=== PATIENT | female | born 1960 | race Caucasian/White ===

== ENCOUNTER 2019-12-14 08:21 | Emergency (ER) | payer MEDICARE ==
[2019-12-14] MEDS ORDERED: Sodium Chloride 0.9% 1,000 ML IV ONE (08:42)
[2019-12-14] MEDS ORDERED: Prochlorperazine 10 MG in Sodium Chloride 0.9% 50 ML IV ONE (08:42)
[2019-12-14 09:39] LABS: BLOOD UREA NITROGEN,BUN 12 mg/dL (7.0-18.0); CARBON DIOXIDE,CO2 28.8 mmol/L (21.0-32.0); CHLORIDE,CL 101 mmol/L (98-107); GLUCOSE RANDOM 87 mg/dL (74-106); LIPASE 56 U/L (73-393); POTASSIUM,K 2.7 mmol/L (3.5-5.1); SODIUM,NA 141 mmol/L (136-145)
[2019-12-14] MEDS ORDERED: Potassium Chloride 20 MEQ Tab.ER PO ONE (09:45)
[2019-12-14] MEDS ORDERED: Potassium Chloride Riders 20 MEQ in Premix Bag 1 BAG IV ONE (09:49)
[2019-12-14] MEDS ORDERED: HYDROmorphone 1 MG/ML Syringe IVPUSH ONE (09:51)
[2019-12-14] MEDS ORDERED: Magnesium Chloride 64 MG Tab.ER PO SCH (10:00)
[2019-12-14 13:07] LABS: BLOOD UREA NITROGEN,BUN 9 mg/dL (7.0-18.0); CARBON DIOXIDE,CO2 28.6 mmol/L (21.0-32.0); CHLORIDE,CL 103 mmol/L (98-107); GLUCOSE RANDOM 80 mg/dL (74-106); POTASSIUM,K 3.5 mmol/L (3.5-5.1); SODIUM,NA 141 mmol/L (136-145)
--- NOTE | 2019-12-14 13:23 | EDM.PDOC ---
ED [facility] GENERAL MEDICAL PROBLEM - General Chief Complaint: General Stated Complaint: VOMITING Time Seen by Provider: 12/14/19 08:25 - History of Present Illness INITIAL COMMENTS - FREE TEXT/NARRATIVE: HPI 59-year-old female presents for evaluation of ~4 days of N/V, continues pass urine, flatus, stool baseline. Presented due to ongoing symptoms. Endorses subjective myalgias, fevers, chills. M/S/F/SocHx notable for: please see HPI; remainder reviewed with patient and in chart. ROS: Negative constitutional, eye, cardiovascular, pulmonary, GI, , MSK, skin , neurologic, psychiatric, endocrine unless noted in the HPI. Exam HR 90, RR 16, BP 134/89, T 35.5C, SaO2 98% on room air at 8:39 AM. Gen: pleasant, appears older than given age, cachectic, not in extremis. HEENT: NC, AT, PEERL, EOMI. Resp: Clear to auscultation bilaterally, normal work of breathing, no accessory muscle usage. Card: Regular rate and rhythm with no murmurs, rubs, or gallops, extremities warm and well perfused. GI: nontender to palpation throughout all quadrants, no rebound, no guarding. : No suprapubic tenderness to palpation. MSK: No visible deformities, strength and tone without visually appreciable deficit. Skin: Normal color with no visible lesions. Neuro: alert and oriented 3, no facial asymmetry, vision and hearing WNL. Psych: depressed mood and flat affect. Labs / Imaging: WBC 7.6, HB 12.3, sodium 141, potassium 2.7, magnesium 1.6, AST 17, ALT 12, alkaline phosphatase 61, total bilirubin 0.7, creatinine 0.7, lipase 56. MDM Previous chart, nursing note, labs, imaging, and vitals reviewed. A: 59-year-old female presents for evaluation of ~4 days of N/V, continues pass urine, flatus, stool baseline. DDx: gastritis, gastroenteritis, bacteremia/sepsis, dehydration, electrolyte abnormalities, obstruction, partial obstruction, ileus. Evaluation: based upon the overall history, exam, and clinical trajectory strongly suspect a viral gastritis. No features suggestive of bacteremia/sepsis (absence of leukocytosis, absence of fever, normal vital signs, stable ED course ), patient mildly dehydrated with hypokalemia and hypomagnesemia that was addressed as below. As the patient has a benign abdominal exam, took p.o. well in the emergency department, and has been taking PO well at home with normal passage of stool strongly doubt obstruction, partial obstruction, or ileus. ED Course: Dehydration treated with 1 L NS and 10 mg Compazine for the patients nausea. Hypokalemia treated with 20 mEq IV and 40 mEq p.o., mild hypomagnesemia treated with 64 mg mag chloride ER. Patient has poorly specified chronic pain for which she takes 10-325 mg [place] TID, patient has been unable to take for 12+ hours due to nausea, 0.5 mg hydromorphone given for parenteral supplementation. Repeat BMP with resolution of the patients hypokalemia, ongoing mild hypomagnesemia noted. Disposition: discharged with RX for Zofran, instructed to increase potassium and magnesium in diet. Impression: nausea, vomiting. Generalized Pain Pain Score (Numeric/FACES): 8 - Related Data Allergies Allergy/AdvReac Type Severity Reaction Status Date / Time cabbage Allergy Seizure Verified 12/14/19 08:36 chocolate flavor Allergy Seizure Verified 12/14/19 08:36 Sulfa (Sulfonamide Allergy Rash Verified 12/14/19 08:36 Antibiotics) Home Meds: Home Meds Aspirin 325 mg PO DAILY 12/14/19 [History] DULoxetine [Cymbalta] 60 mg PO DAILY 12/14/19 [History] Fenofibrate 160 mg PO DAILY 12/14/19 [History] Gabapentin [Neurontin] 200 mg PO BID 12/14/19 [History] Hydrocodone/Acetaminophen [Hydrocodon-Acetaminophn 10-325] 60 mg PO TID PRN 01/29 [History] Iron 65 mg PO ASDIRECTED 12/14/19 [History] Levothyroxine 137 mg PO DAILY 12/14/19 [History] Ondansetron [Zofran ODT] 4 mg PO Q6H PRN #10 tab.dis 12/14/19 [Rx] Pantoprazole Sodium 40 mg PO DAILY 12/14/19 [History] Propranolol HCl 60 mg PO BID 12/14/19 [History] Rosuvastatin Calcium 20 mg PO DAILY 12/14/19 [History] Sertraline HCl 100 mg PO BEDTIME 12/14/19 [History] Temazepam 30 mg PO BEDTIME 12/14/19 [History] atorvaSTATin Calcium [Atorvastatin Calcium] 80 mg PO BEDTIME 12/14/19 [History] Past Medical History HEENT History: Reports: Cataract Cardiovascular History: Reports: High Cholesterol, Hypertension Other Cardiovascular History: Stents [employer] History: Reports: Musculoskeletal History: Reports: RA Neurological History: Reports: Migraines Psychiatric History: Reports: Depression Other Endocrine/Metabolic History: "Thyroid Issues" 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 - Infectious Disease History Infectious Disease History: Reports: Chicken Pox - Past Surgical History HEENT Surgical History: Reports: Oral Surgery GI Surgical History: Reports: Appendectomy, Cholecystectomy Social & Family History - Tobacco Use Smoking Status *Q: Current Every Day Smoker Years of Tobacco use: 30 Packs/Tins Daily: 0 - Caffeine Use Caffeine Use: Reports: Tea - Recreational Drug Use Recreational Drug Use: Yes Recreational Drug Type: Reports: Marijuana/Hashish Other Recreational Drug Type: "Medical Marijuana" ED ROS GENERAL - Review of Systems Review Of Systems: See Below ED EXAM, GENERAL - Physical Exam Exam: See Below Course - Vital Signs Last Recorded V/S: Last Vital Signs Temp 35.5 C L 12/14/19 08:39 Pulse 90 12/14/19 08:39 Resp 16 12/14/19 08:39 BP 134/89 12/14/19 08:39 Pulse Ox 98 12/14/19 08:39 - Orders/Labs/Meds Labs: Laboratory Tests 12/14/19 12/14/19 12/14/19 Range/Units 09:05 09:05 12:31 WBC 7.86 (4.0-11.0) K/uL RBC 4.50 (4.30-5.90) M/uL Hgb 12.3 (12.0-16.0) g/dL Hct 38.0 (36.0-46.0) % MCV 84.4 (80.0-98.0) fL MCH 27.3 (27.0-32.0) pg MCHC 32.4 (31.0-37.0) g/dL RDW Std Deviation 51.0 (28.0-62.0) fl RDW Coeff of Angel 16 H (11.0-15.0) % Plt Count 310 (150-400) K/uL MPV 10.60 (7.40-12.00) fL Neut % (Auto) 70.8 (48.0-80.0) % Lymph % (Auto) 16.0 (16.0-40.0) % [place] % (Auto) 8.5 (0.0-15.0) % Eos % (Auto) 4.3 (0.0-7.0) % Baso % (Auto) 0.4 (0.0-1.5) % Neut # (Auto) 5.6 (1.4-5.7) K/uL Lymph # (Auto) 1.3 (0.6-2.4) K/uL [place] # (Auto) 0.7 (0.0-0.8) K/uL Eos # (Auto) 0.3 (0.0-0.7) K/uL Baso # (Auto) 0.0 (0.0-0.1) K/uL Nucleated RBC % 0.0 /100WBC Nucleated RBCs # 0 K/uL Sodium 141 141 (136-145) mmol/L Potassium 2.7 L 3.5 (3.5-5.1) mmol/L Chloride 101 103 (98-107) mmol/L Carbon Dioxide 28.8 28.6 (21.0-32.0) mmol/L BUN 12 9 (7.0-18.0) mg/dL Creatinine 0.7 0.6 (0.6-1.0) mg/dL Est Cr Clr Drug Dosing 74.36 86.75 mL/min Estimated GFR (MDRD) > 60.0 > 60.0 ml/min Glucose 87 80 (74-106) mg/dL Calcium 9.0 8.6 (8.5-10.1) mg/dL Magnesium 1.6 L 1.6 L (1.8-2.4) mg/dL Total Bilirubin 0.7 (0.2-1.0) mg/dL AST 17 (15-37) IU/L ALT 12 L (14-63) IU/L Alkaline Phosphatase 61 (46-116) U/L Total Protein 6.5 (6.4-8.2) g/dL Albumin 2.7 L (3.4-5.0) g/dL Globulin 3.8 (2.6-4.0) g/dL Albumin/Globulin Ratio 0.7 L (0.9-1.6) Lipase 56 L (73-393) U/L Meds: Medications Discontinued Medications Generic Name Dose Route Start Last Admin Trade Name Rita PRN Reason Stop Dose Admin Hydromorphone HCl 0.5 mg 12/14/19 09:51 12/14/19 10:17 Dilaudid IVPUSH 12/14/19 09:52 0.5 mg ONETIME ONE Administration Prochlorperazine Edisylate 10 52 mls @ 150 mls/hr 12/14/19 08:42 12/14/19 09: 16 mg/ Sodium Chloride IV 12/14/19 09:02 150 mls/hr ONETIME ONE Administration Sodium Chloride 1,000 mls @ 1,000 mls/hr 12/14/19 08:42 12/14/19 09:06 Normal Saline IV 12/14/19 09:41 1,000 mls/hr .Bolus ONE Administration Potassium Chloride 20 meq/ 260 mls @ 130 mls/hr 12/14/19 10:03 12/14/19 10:16 Sodium Chloride IV 12/14/19 11:48 130 mls/hr ONETIME ONE Administration Magnesium Chloride 64 mg 12/14/19 10:00 12/14/19 10:20 Mag-64 PO Not Given DAILY LARISA Potassium Chloride 40 meq 12/14/19 09:45 12/14/19 10:16 Klor-Con M20 PO 12/14/19 09:46 40 meq ONETIME ONE Administration Departure - Departure Time of Disposition: 13:20 Disposition: Home, Self-Care 01 Clinical Impression: Nausea & vomiting - Discharge Information Prescriptions: Ondansetron [Zofran ODT] 4 mg PO Q6H PRN #10 tab.dis PRN Reason: Nausea Instructions: Hypokalemia, Hypomagnesemia Referrals: PCP,Not In Area [Primary Care Provider] - Additional Instructions: You were in seen in the [facility] Emergency Department for evaluation of nausea and vomiting. At the time of your evaluation your symptoms are tentatively believed to be due to a viral gastritis. This is typically self-limiting disease that should pass in 4-6 days. Please take the prescribed Zofran for treatment of nausea and please have a well-rounded diet to address your low potassium and magnesium levels. You may wish to increase your consumption of bananas, avocados, and oranges. Please read and follow all of the instructions below. Please follow up with your primary care physician in 2 days for repeat evaluation. When calling for follow-up care, please make the office aware that this follow-up is from your recent emergency room visit. If for any reason you are refused follow-up, please contact the [facility] Emergency Department at and asked to speak to the emergency department charge nurse. Your care today was limited to identifying and treating emergent medical problems only. Many people have subtle differences in their test results that require follow up with their outpatient physician(s) to correctly determine if this represents a normal variation or concerning abnormality with respect to your specific health. The care given to you today was limited to identifying and treating emergent medical problems - you need to request a copy of all of your medical records from today's visit and follow up with your outpatient physician(s) to review both today's visit and your overall health. If you have any new symptoms or if you are at all concerned about your health please return immediately to the emergency department. Ondansetron (Brand Name: Zofran) Take one tablet every 6 hours as needed for nausea SIDE EFFECTS: Headache, fever, lightheadedness, dizziness, drowsiness, tiredness , constipation. If these effects persist or worsen, notify your doctor promptly. Many people using this medication do not have serious side effects. Tell your doctor right away if you have any serious side effects, including: stomach pain, muscle stiffness/spasm, vision changes (e.g., temporary loss of vision, blurred vision, uncontrollable eye movements). Get medical help right away if any of these rare but very serious side effects occur: chest pain, fainting, slow/fast/irregular heartbeat. A very serious allergic reaction to this drug is rare. However, get medical help right away if you notice any of the following symptoms of a serious allergic reaction: rash, itching/swelling ( especially of the face/tongue/throat), severe dizziness, trouble breathing. This is not a complete list of possible side effects. If you notice other effects not listed above, contact your doctor or pharmacist. PRECAUTIONS: Before using ondansetron, tell your doctor or pharmacist if you are allergic to it; or to other serotonin blockers (e.g., granisetron); or if you have any other allergies. This product may contain inactive ingredients, which can cause allergic reactions or other problems. Talk to your pharmacist for more details. Before using this medication, tell your doctor or pharmacist your medical history, especially of: irregular heartbeat, liver disease, stomach /intestinal problems (e.g., recent abdominal surgery, ileus, swelling). Ondansetron may cause a condition that affects the heart rhythm (QT prolongation ). QT prolongation can infrequently result in serious (rarely fatal) fast/ irregular heartbeat and other symptoms (such as severe dizziness, fainting) that require immediate medical attention. The risk of QT prolongation may be increased if you have certain medical conditions or are taking other drugs that may affect the heart rhythm (see also Drug Interactions section). Before using ondansetron, tell your doctor or pharmacist if you have any of the following conditions: certain heart problems (heart failure, slow heartbeat, QT prolongation in the EKG), family history of certain heart problems (QT prolongation in the EKG, sudden cardiac ). Low levels of potassium or magnesium in the blood may also increase your risk of QT prolongation. This risk may increase if you use certain drugs (such as diuretics/"water pills") or if you have conditions such as severe sweating, diarrhea, or vomiting. Talk to your doctor about using ondansetron safely. This drug may make you dizzy or drowsy or cause blurred vision. Do not drive, use machinery, or do any activity that requires alertness or clear vision until you are sure you can perform such activities safely. Limit alcoholic beverages. Infants younger than 5 months may be more sensitive to the effects of this drug, especially diarrhea. During , this medication should be used only when clearly needed. Discuss the risks and benefits with your doctor. It is not known if this drug passes into breast milk. Consult your doctor before breast-feeding. DRUG INTERACTIONS: Drug interactions may change how your medications work or increase your risk for serious side effects. This document does not contain all possible drug interactions. Keep a list of all the products you use (including prescription/nonprescription drugs and herbal products) and share it with your doctor and pharmacist. Do not start, stop, or change the dosage of any medicines without your doctor's approval. Some products that may interact with this drug include: apomorphine, tramadol. Many drugs besides ondansetron may affect the heart rhythm (QT prolongation), including dofetilide, pimozide, procainamide, amiodarone, quinidine, sotalol, macrolide antibiotics (such as erythromycin), among others. Therefore, before using ondansetron, report all medications you are currently using to your doctor or pharmacist. Prescriptions: If you are uninsured or have financial difficulties with filling your prescription(s), you may consider using a free pharmacy discount service such as [employer] ([employer]) or [employer] ([employer]). These services allow you to search for a medication on your phone (or computer) and obtain a coupon that usually has a significant discount from the list [place] at a pharmacy. Your physician as well as [facility] does not have a financial relationship with either of these services. You may also wish to speak with your physician to determine if lower cost prescriptions are possible. Obtaining primary care: 1. [facility] provides pediatrics (children), family medicine (children, adults, and some obstetrical care), and internal medicine (adults). Further specialty care is also available. Same day appointments are available. They may be contacted at [phone] and are open Thursday through Thursday 8 AM to 5 PM. The [facility] are located at [facility], [address] [place] [address]. 2. [facility] offers family medicine, internal medicine, womens health, and further specialty care. [facility] may be contacted at [phone]. [facility] is located at [address] [place] [address]. 3. If you have health insurance, please also contact your insurer for a list of accepting providers under your policy, you may contact these providers for further health care. Occupational health: Work related injuries may consider following up with [facility], . Occupational health services are located at [address] [place] [address] and are open Thursday through Sixto from 7: 30 am to 5:00 pm. Obstetrical and Gynecological Care: [facility], , Thursday through Thursday 8 AM to 5 PM. [address] [place] [address]. Eyecare: If you have an eye injury you should follow up with your space sciences director or with [facility], at [phone] or [phone] , they are located at [address] [place] [phone]. [facility] Care Alvino Brannon DDS. [address] [place], [place]. Ph. [phone] Rogerio Brannon DDS [place]. [address] [facility] 104, [place], [place]. Ph. [phone] Nando Mckoen DDS. 10 10/[address] [place] [address]. Ph. [phone] Aidan Burden DDS. 501 [facility] 4 [place], [place]. Ph. [phone] Nikolas Ackerman DDS PC. [address] [facility] 101 [place], [place]. Ph. Krissy Ramey DDS. [address] [place] [address]. Ph. [phone] [facility]. [address] [place], [place]. Ph. [phone] [facility]. [address] [place] [address], [place], [place]. Ph. [phone] [facility] [address] [place] [phone]. Ph. [facility]. [address] [place] [address] [address] [place], [place]. Ph. [facility]. [address] [place], [place]. Ph. Sepsis Event Note - Evaluation Sepsis Screening Result: No Definite Risk - Focused Exam Vital Signs: Vital Signs Temp Pulse Resp BP Pulse Ox 12/14/19 08:39 35.5 C L 90 16 134/89 98 Date Exam was Performed: 12/14/19 Time Exam was Performed: 13:20
== END 2019-12-14 13:32 | disposition home or self-care (01) ==
LOC: MW.ED 08:21
DX: E87.6 Hypokalemia (principal); E83.42 Hypomagnesemia; E86.0 Dehydration; R11.2 Nausea with vomiting, unspecified; F32.9 Major depressive disorder, single episode, unspecified; I10 Essential (primary) hypertension; M06.9 Rheumatoid arthritis, unspecified; F17.210 Nicotine dependence, cigarettes, uncomplicated; Z79.899 Other long term (current) drug therapy; Z79.82 Long term (current) use of aspirin; Z98.890 Other specified postprocedural states; Z90.49 Acquired absence of other specified parts of digestive tract; Z88.2 Allergy status to sulfonamides; Z91.018 Allergy to other foods
CPT/HCPCS: 36415; 80048; 80053; 83690; 83735; 85025; 87804; 96365; 96366; 96367; 96375; 99284; A9270; J0780; J1170; J3480; J7030; J7050